=== PATIENT | female | born 1965 | race Two or more races ===

== ENCOUNTER 2024-03-25 10:03 | Emergency (ER) | payer OTHER ==
[~2024-03-25] VITALS: Ht 162.6 cm; Wt 102.1 kg
[2024-03-25] MEDS ORDERED: LOSARTAN-HCTZ1 EAC2 PO (10:25)
[2024-03-25] MEDS ORDERED: KETOROLAC TROMETHAMINE 60 MG VIAL IM ONE (14:30)
== END 2024-03-26 16:03 | disposition home or self-care (01) ==
LOC: ER 10:05 → EDBD 10:14 → ER 03-26 16:03
DX: S32.492A Other specified fracture of left acetabulum, initial encounter for closed fracture (principal); W18.31XA Fall on same level due to stepping on an object, initial encounter; Y93.89 Activity, other specified; Y92.89 Other specified places as the place of occurrence of the external cause; I10 Essential (primary) hypertension; M16.12 Unilateral primary osteoarthritis, left hip

== ENCOUNTER 2024-04-09 08:24 | Outpatient (CLI) | payer OTHER ==
[~2024-04-09 08:24] MED LIST: LOSARTAN-HCTZ1 EAC2 PO
== END 2024-04-09 08:41 | disposition home or self-care (01) ==
LOC: TOM 08:24
PROVIDERS: ATTEND Orthopaedic Surgery
DX: S32.425A Nondisplaced fracture of posterior wall of left acetabulum, initial encounter for closed fracture (principal)